=== PATIENT | female | born 1985 | race Caucasian/White ===

== ENCOUNTER 2017-10-29 21:43 | Inpatient (IN) | payer OTHER ==
[~2017-10-29] VITALS: Ht 185.4 cm; Wt 86.6 kg
[2017-10-29 21:50] VITALS: BP 135/83
--- NOTE | 2017-10-29 21:54 | NUR ---
AMB TO BED 7 BY ANA KEY
--- NOTE | 2017-10-29 21:55 | NUR ---
C/O LEFT FLANK PAIN X 2 HOURS PRIVATE INVESTIGATOR SURVEILLANCE. REPORTS NAUSEA AND FOUL-ODORED URINE, DENIES HEMATURIA/DYSURIA, V/D, FEVER/CHILLS PMH: RT KIDNEY STONES PT DENIES V/D, ADMITS NAUSEA; SKIN IS INTACT, PINK/WARM/DRY; AAOX4, PERRL, WITH EVEN AND STEADY GAIT; LUNGS CLEAR BL, BREATHING UNLABORED; HR EVEN AND REGULAR, BL PERIPHERAL PULSES PRESENT; BS ACTIVE X4, TENDERNESS TO LLQ ON PALPATION, NO HEPATOSPLENOMEGALLY PALPATED, RESONANT TO PERCUSSION; PT DENIES ANY FEVER, CP, SOB, OR COUGH AT THIS TIME; PT STATES 7/10 PAIN AT THIS TIME; VSS; PATIENT POSITIONED FOR COMFORT; HOB ELEVATED; BEDRAILS UP X2; BED DOWN.
[2017-10-29] MEDS ORDERED: NACL 0.9% 1,000 ML IV ONE (22:05)
[2017-10-29] MEDS ORDERED: KETOROLAC 30 MG/ML VIAL IVP ONE (22:05)
--- NOTE | 2017-10-29 22:32 | NUR ---
PT TO CT
[2017-10-29 22:55] LABS: BASOPHILS # (AUTO) 0.1 K/uL (0.00-0.22); BASOPHILS % (AUTO) 0.7 % (0.0-2.0); EOSINOPHILS # (AUTO) 0.1 K/uL (0-0.4); EOSINOPHILS % (AUTO) 0.5 % (0.0-4.0); HEMATOCRIT 43.2 % (36-48); HEMOGLOBIN 14.7 g/dL (12.0-16.0); LYMPHOCYTES # (AUTO) 1.6 K/uL (2.5-16.5); LYMPHOCYTES % (AUTO) 12.5 % (20.5-51.1); MEAN CORPUSCULAR HEMOGLOBIN 31 pg (27-31); MEAN CORPUSCULAR HGB CONC 34 g/dL (33-37); MEAN CORPUSCULAR VOLUME 89.3 fL (80-94); MONOCYTES # (AUTO) 0.4 K/uL (0.8-1.0); MONOCYTES % (AUTO) 3.3 % (1.7-9.3); NEUTROPHILS # (AUTO) 10.4 K/uL (1.8-7.7); PLATELET COUNT (AUTO) 189 K/uL (140-450); RED BLOOD CELL COUNT(AUTO) 4.84 MIL/uL (4.20-5.40); RED CELL DISTRIBUTION WIDTH 12.9 % (11.6-13.7); WHITE BLOOD COUNT (AUTO) 12.6 K/uL (4.8-10.8)
[2017-10-29 22:58] LABS: BILIRUBIN,URINE NEGATIVE (NEGATIVE); BLOOD, URINE 3+ (NEGATIVE); COLOR,URINE YELLOW (YELLOW); LEUKOCYTE ESTERASE ,URINE TRACE (NEGATIVE); NITRITE, URINE NEGATIVE (NEGATIVE); PH,URINE 6.5 (5.0-9.0); UGLUCOSE NEGATIVE (NEGATIVE)
[2017-10-29 23:00] LABS: APPEARANCE,URINE HAZY (CLEAR)
[2017-10-29 23:04] LABS: ANION GAP 11.1 (8-16); CREATININE 1.1 mg/dL (0.6-1.3); POTASSIUM 4.1 mmol/L (3.5-5.1)
[2017-10-29 23:08] LABS: RBC,URINE >100 /HPF (0-5); WBC,URINE 0-5 (RARE) /HPF (0-5)
[2017-10-29 23:10] LABS: ALBUMIN 3.9 g/dL (3.4-5.0); TOTAL BILIRUBIN 0.6 mg/dL (0.0-1.0)
[2017-10-29] MEDS ORDERED: cefTRIAXone 1,000 MG VIAL ONE (23:34)
[2017-10-30] MEDS ORDERED: MORPHINE SULFATE 4 MG/ML SYR IVP ONE
[2017-10-30] MEDS: NACL 0.9% 1,000 ML IV SCH ×3 (00:10→20:55)
[2017-10-30] MEDS ORDERED: MORPHINE SULFATE 2 MG/ML SYR IVP PRN (00:10)
[2017-10-30 00:40] VITALS: BP 115/78
--- NOTE | 2017-10-30 00:40 | NUR ---
REPORT RECEIVED FROM ED NURSE. PT IN STABLE CONDITION. PT ADMITTED TO MS MONITORING. HEART SOUNDS NORMAL. LUNG SOUNDS CLEAR BILATERALLY. BOWEL SOUNDS ACTIVE X4 QUADRANTS. IV SITE LEAKING. SKIN WARM, DRY, AND INTACT WITH NO OPEN WOUNDS. PT PAIN LEVEL 6/10, PAIN MEDICATION JUST GIVEN IN ER. BED LOCKED IN LOW POSITION. CALL ACE WITHIN REACH. ORIENTED TO THE FLOOR. WILL CONTINUE TO MONITOR.
--- NOTE | 2017-10-30 00:40 | NUR ---
Patient will be admitted to care of DR. SPRAGUE. Admited to MS. Will go to room 105A. Belongings list completed. Report to ALY KEY.
--- NOTE | 2017-10-30 01:50 | NUR ---
CAROL KEY CHANGED THE IV HUB STOPPING THE LEAKAGE. NO NEED TO REINSERT AN IV. WILL MONITOR FOR ANY COMPLICATIONS.
[2017-10-30] MEDS: MORPHINE SULFATE 4 MG/ML SYR IVP PRN ×3 (02:09→11:01)
--- NOTE | 2017-10-30 02:09 | NUR ---
PT IN SEVERE PAIN 12/16. PT MEDICATED. PT TOLERATED WELL. WILL CONTINUE TO MONITOR.
--- NOTE | 2017-10-30 03:20 | NUR ---
PT FEELING NAUSEOUS. WILL CONTACT [facility] FOR ORDER FOR ZOFRAN.
--- NOTE | 2017-10-30 03:25 | NUR ---
ORDER IN FROM EDIL[facility] NIX. PATRICE CANTU Q6 PRN.
--- NOTE | 2017-10-30 03:48 | NUR ---
ZOFRAN GIVEN. PT TOLERATED WELL.
[2017-10-30] MEDS: ONDANSETRON 4 MG/2 ML VIAL IVP PRN ×2 (03:50→11:00)
--- NOTE | 2017-10-30 04:45 | NUR ---
PT ASLEEP LEFT LATERAL COMFORTABLY. PT NOT IN ANY ACUTE DISTRESS. WILL CONTINUE TO MONITOR.
--- NOTE | 2017-10-30 07:10 | NUR ---
REPORT GIVEN TO AM NURSE. PT IN STABLE CONDITION.
--- NOTE | 2017-10-30 07:15 | NUR ---
RECEIVED PT FROM MORPHOLOGIST NURSE, ALY, PT IS AWAKE AND DRINKING WATER IN HER CUP. PT IS ALERT, ORIENTEDX4. PLAN OF CARE WAS DISCUSSED AND PT VERBALIZED UNDERSTANDING. PT HAS AN IV LINE ON THE LEFT ACG. 18 WITH NS RUNNING AT A 100ML/HR, INTACT. SIDE RAILS ARE UP AND CALL LIGHT WITHIN REACH. NO SIGNS OF DISTRESS NOTED AND WILL CONTINUE TO MONITOR.
[2017-10-30 08:00] VITALS: BP 114/77
--- NOTE | 2017-10-30 14:05 | NUR ---
DR. SPRAGUE WAS INFORMED OF THE PT'S PAIN RATE OF 8/[address] SPRAGUE ORDERED TORADOL 30MG IV Q6H FOR MODERATE PAIN. ACKNOWLEDGED AND WILL PROCESS THE ORDER.
--- NOTE | 2017-10-30 14:10 | NUR ---
PT WAS SEEN AND ASSESSES BY DR. SPRAGUE. PT VERBALIZED STILL HAVING PAIN ON HER LEFT FLANK AREA.
--- NOTE | 2017-10-30 14:48 | NUR ---
ACKNOWLEDGED A DISCHARGE ORDER FOR THE PT FROM DR. SPRAGUE TO RETURN TO [facility]. WILL FACILITATE DISCHARGE PROCESS. Addendum: 10/30/17 at 1452 by Laureen Ellis RN WRONG PT ENTRY FOR THE ABOVE INFORMATION.
[2017-10-30 16:00] VITALS: BP 114/78
[2017-10-30] MEDS: KETOROLAC 30 MG/ML VIAL IVP PRN ×2 (16:54→22:29)
--- NOTE | 2017-10-30 16:55 | NUR ---
PTM IS AWAKE AND VERBALIZED A PAIN RATE OF 6/10, VITAL SIGNS TAKEN AND MEDICATION GIVEN AND PT TOLERATED IT. NO SIGN OF DISTRESS NOTED. WILL ASSESSED PT'S PAIN IN AN HOUR.
--- NOTE | 2017-10-30 19:10 | NUR ---
ENDORSED PT TO TAPPER BALANCE WHEEL SCREW HOLE NURSE, ALY, PT IS AWAKE WITH ON THE BEDSIDE. PT IS STABLE AT THIS TIME.
--- NOTE | 2017-10-30 19:11 | NUR ---
REPORT RECEIVED FROM AM NURSE. PT IN STABLE CONDITION. AAOX4. HEART SOUNDS CLEAR. LUNG SOUNDS CLEAR. BOWEL SOUNDS ACTIVE X4 QUADRANTS. INTRODUCED SELF AND BOARD UPDATED. IV SITE 18G LEFT AC PATENT AND INTACT. SKIN WARM, DRY, AND INTACT WITH NO OPEN WOUNDS. BED LOCKED IN LOW POSITION. CALL ACE WITHIN REACH. WILL CONTINUE TO MONITOR.
--- NOTE | 2017-10-30 20:10 | NUR ---
PM MEDS GIVEN. PT TOLERATED WELL.
--- NOTE | 2017-10-30 22:29 | NUR ---
TORADOL GIVEN FOR PAIN LEVEL 12/16. PT TOLERATED WELL. WILL REASSESS AT 2328.
--- NOTE | 2017-10-30 23:29 | NUR ---
PAIN REASSESSMENT COMPLETE. PT PAIN 06/18. INTERVENTION SUCCESSFUL.
[2017-10-31] VITALS: BP 88/47
--- NOTE | 2017-10-31 01:30 | NUR ---
PT SLEEPING COMFORTABLY IN BED IN NO ACUTE DISTRESS. WILL CONTINUE TO MONITOR.
--- NOTE | 2017-10-31 03:30 | NUR ---
PT SLEEPING LEFT LATERAL. CHEST EXPANSION VISIBLE. PT NOT IN ANY ACUTE DISTRESS.
--- NOTE | 2017-10-31 04:30 | NUR ---
PT PAIN LEVEL 7/10. TORADOL GIVEN. PT TOLERATED WELL.
[2017-10-31] MEDS: KETOROLAC 30 MG/ML VIAL IVP PRN ×3 (04:37→18:15)
[2017-10-31 06:55] LABS: BASOPHILS % (AUTO) 0.3 % (0.0-2.0); EOSINOPHILS # (AUTO) 0.1 K/uL (0-0.4); HEMATOCRIT 37.1 % (36-48); HEMOGLOBIN 12.6 g/dL (12.0-16.0); LYMPHOCYTES # (AUTO) 1.2 K/uL (2.5-16.5); LYMPHOCYTES % (AUTO) 10.4 % (20.5-51.1); MEAN CORPUSCULAR HEMOGLOBIN 31 pg (27-31); MEAN CORPUSCULAR HGB CONC 34 g/dL (33-37); MEAN CORPUSCULAR VOLUME 89.8 fL (80-94); MONOCYTES # (AUTO) 0.8 K/uL (0.8-1.0); MONOCYTES % (AUTO) 6.8 % (1.7-9.3); NEUTROPHILS # (AUTO) 9.4 K/uL (1.8-7.7); NEUTROPHILS % (AUTO) 81.5 % (42.2-75.2); PLATELET COUNT (AUTO) 129 K/uL (140-450); RED BLOOD CELL COUNT(AUTO) 4.12 MIL/uL (4.20-5.40); WHITE BLOOD COUNT (AUTO) 11.6 K/uL (4.8-10.8)
--- NOTE | 2017-10-31 07:05 | NUR ---
REPORT GIVEN TO AM NURSE. PT IN STABLE CONDITION.
--- NOTE | 2017-10-31 07:06 | NUR ---
RECEIVED BEDSIDE REPORT FROM SOFTWARE COMPUTER SPECIALIST NURSE. PATIENT IS SLEEPING. NO SIGNS OF DISTRESS ON ROOM AIR. IV ON L AC 18G INFUSING NS AT 100. IV IS CLEAN, DRY AND INTACT. SKIN IS INTACT. PATIENT IS AMBULATORY. BED IN LOW POSITION. CALL LIGHT WITHIN REACH. WILL CONTINUE TO MONITOR THE PATIENT.
--- NOTE | 2017-10-31 07:06 | NUR ---
RECEIVED BEDSIDE REPORT FROM RUSSIAN RUBBER NURSE. PATIENT IS SLEEPING. NO SIGNS OF DISTRESS ON ROOM AIR. PATIENT SLEEPING ON TUMMY. IV ON R AC 20G INFUSING NS AT 100. IV IS CLEAN, DRY AND INTACT. PATIENT IS 8 WEEKS 5 DAYS . BED IN LOW POSITION. CALL LIGHT WITHIN REACH. WILL CONTINUE TO MONITOR PATIENT. PATIENT IS ON OBSERVATION. Addendum: 10/31/17 at 1022 by Laurie Young RN WRONG PATIENT.
[2017-10-31 07:56] LABS: ALBUMIN 2.7 g/dL (3.4-5.0); ANION GAP -3.2 (8-16); CARBON DIOXIDE 24.8 mmol/L (21-32); CREATININE 0.9 mg/dL (0.6-1.3); POTASSIUM 3.6 mmol/L (3.5-5.1)
[2017-10-31 08:00] VITALS: BP_SYST 134; BP_SYST 97; BP_DIAS 59; BP_DIAS 88
--- NOTE | 2017-10-31 08:07 | NUR ---
LAB CALLED FOR CRITICAL CALCIUM 7.6, SODIUM 124. CALLED DR SPRAGUE. HE IS AWARE. HE SAID SHE IS OK D/T IVF.
[2017-10-31] MEDS: NACL 0.9% 1,000 ML IV SCH ×2 (10:00→16:10)
--- NOTE | 2017-10-31 10:00 | NUR ---
ADMINISTERED IV FLUIDS. IV SITE IS CLEAN, DRY AND INTACT. WILL CONTINUE TO MONITOR THE PATIENT. BED IN LOW POSITION. CALL LIGHT WITHIN REACH.
--- NOTE | 2017-10-31 11:16 | NUR ---
PATIENT IN BED. NO SIGNS OF DISTRESS. PATIENT IS EATING SNACKS. WILL CONTINUE TO MONITOR THE PATIENT.
--- NOTE | 2017-10-31 13:00 | NUR ---
PATIENT AMBULATING AROUND THE HALLS WITH . GAIT IS STEADY, NO SIGNS OF DISTRESS
--- NOTE | 2017-10-31 14:44 | NUR ---
PATIENT IN ROOM WITH FAMILY. NO DISTRESS AT THIS TIME. WILL CONTINUE TO MONITOR THE PATIENT
[2017-10-31 16:00] VITALS: BP 105/75
--- NOTE | 2017-10-31 17:00 | NUR ---
PATIENT WITH AT BEDSIDE. NO COMPLAINTS AT THIS TIME. BED IN LOW POSITION. CALL LIGHT WITHIN REACH
--- NOTE | 2017-10-31 17:27 | NUR ---
FAXED INITIAL REVIEW TO [facility] [phone] PHONE IVETTE [phone]
--- NOTE | 2017-10-31 19:00 | NUR ---
REPORT RECEIVED AT BEDSIDE FOR TRANSFER OF CARE. PT SITTING UP IN LOW BED WITH SIDE RAILS UP X 2 AND IS ALERT AND ORIENTED X 4, SKIN IN TACT AND HAS A 18 GAUGE IN L EFT AC. RUNNING N/S AT 100ML/HR. NO S/S OF PAIN OR DISTRESS AT THIS TIME. . V/S T 99.1 P 73 R 18 B/P 124/76 02 100% ON R/A. PT OFFERED TYLENOL FOR MILD PAIN BUT PT REFUSED AT THIS TIME.
--- NOTE | 2017-10-31 19:00 | NUR ---
GAVE BEDSIDE REPORT TO ASSISTANT PROFESSOR SURGICAL TECHNOLOGY NURSE. PATIENT IS IN STABLE CONDITION
[2017-10-31 20:00] VITALS: BP 106/63
--- NOTE | 2017-10-31 21:00 | NUR ---
PT IN BED FOOD BROUGHT IN BY FAMILY, PT IS MADE AWARE OF NPO STATUS AND HAS VERBALIZED UNDERSTANDING.
--- NOTE | 2017-10-31 23:50 | NUR ---
PT IS ASLEEP IN BED NO S/S OF PAIN OR DISTRESS NOTED, PT IS AWARE OF NPO STATUS. CALL ACE IN REACH.
[2017-11-01] MEDS: NACL 0.9% 1,000 ML IV SCH ×2 (01:33→12:10)
[2017-11-01] MEDS: KETOROLAC 30 MG/ML VIAL IVP PRN (01:37)
--- NOTE | 2017-11-01 01:45 | NUR ---
PT C/O 6/10 PAIN IN L FLANK AREA, GIVEN 30MG TORADOL IVP. PT IN LOW BED, SIDE RAILS UP X 2 IV SITE PATENT AND RUNNING AT 100MLS/NS ORDERED. CALL ACE IN REACH
[2017-11-01] MEDS ORDERED: BIRTHCONTROL (06:54)
[2017-11-01 07:03] LABS: BASOPHILS % (AUTO) 0.2 % (0.0-2.0); EOSINOPHILS # (AUTO) 0.2 K/uL (0-0.4); EOSINOPHILS % (AUTO) 2.1 % (0.0-4.0); HEMATOCRIT 34.9 % (36-48); HEMOGLOBIN 11.8 g/dL (12.0-16.0); LYMPHOCYTES # (AUTO) 1.6 K/uL (2.5-16.5); LYMPHOCYTES % (AUTO) 18.6 % (20.5-51.1); MEAN CORPUSCULAR HEMOGLOBIN 31 pg (27-31); MEAN CORPUSCULAR HGB CONC 34 g/dL (33-37); MEAN CORPUSCULAR VOLUME 90.6 fL (80-94); MONOCYTES # (AUTO) 0.7 K/uL (0.8-1.0); MONOCYTES % (AUTO) 7.5 % (1.7-9.3); NEUTROPHILS # (AUTO) 6.3 K/uL (1.8-7.7); NEUTROPHILS % (AUTO) 71.6 % (42.2-75.2); PLATELET COUNT (AUTO) 131 K/uL (140-450); RED BLOOD CELL COUNT(AUTO) 3.85 MIL/uL (4.20-5.40); RED CELL DISTRIBUTION WIDTH 13.1 % (11.6-13.7); WHITE BLOOD COUNT (AUTO) 8.8 K/uL (4.8-10.8)
--- NOTE | 2017-11-01 07:10 | NUR ---
TRANSFER OF CARE AT BEDSIDE TO [facility] KEY PT IN STABLE CONDITION TO BE GOING TO SURGERY FOR A STENT TO BE PLACED DUE TO POLYNEPHRITIS. PT REMAINS NPO.
--- NOTE | 2017-11-01 07:10 | NUR ---
RECEIVED REPORT FROM NIGHTSHIFT NURSE AT BEDSIDE. PATIENT IS ASLEEP AT THIS TIME. PATIENT IS AROUSABLE TO NAME. NO DISTRESS NOTED AT THIS TIME. IV NOTED ON LEFT AC 18 G WITH 100 ML/HR NORMAL SALINE RUNNING. NO PAIN NOTED AT THIS TIME. UPDATED BOARD IN PATIENT'S ROOM. LOWERED BED TO LOWEST SETTING. WILL CONTINUE TO MONITOR PATIENT.
[2017-11-01 07:13] LABS: ANION GAP 12.3 (8-16); CARBON DIOXIDE 23.5 mmol/L (21-32); CREATININE 0.8 mg/dL (0.6-1.3); POTASSIUM 3.8 mmol/L (3.5-5.1)
[2017-11-01 08:00] VITALS: BP 110/67
--- NOTE | 2017-11-01 08:24 | NUR ---
PATIENT TOOK AM MEDICATIONS. PATIENT TOLERATED WELL. WILL CONTINUE TO MONITOR PATIENT
[2017-11-01] MEDS ORDERED: TAMSULOSIN 0.4 MG CAP PO SCH (08:30)
--- NOTE | 2017-11-01 09:50 | NUR ---
PATIENT ASLEEP AT THIS TIME. NO DISTRESS NOTED. WILL CONTINUE TO MONITOR PATIENT.
[2017-11-01] MEDS: MORPHINE SULFATE 4 MG/ML SYR IVP PRN (11:05)
[2017-11-01] MEDS ORDERED: CEPH250C16 PO (11:31)
[2017-11-01] MEDS ORDERED: TAMS0.4C96 PO (11:31)
[2017-11-01] MEDS ORDERED: ACET-8386 PO (11:32)
[2017-11-01] MEDS ORDERED: SEVOFLURANE 250 ML BTL INH ONE (12:55)
[2017-11-01] MEDS ORDERED: PROPOFOL 200 MG/20 ML VIAL IV ONE (12:55)
[2017-11-01] MEDS ORDERED: MIDAZOLAM 2 MG/2 ML VIAL ONE (13:02)
[2017-11-01] MEDS ORDERED: fentaNYL 0.05 MG/ML VIAL ONE (13:02)
[2017-11-01] MEDS ORDERED: LACTATED RINGERS 1,000 ML IV SCH (13:29)
[2017-11-01] MEDS ORDERED: diphenhydrAMINE 50 MG/ML VIAL IVP PRN (13:30)
[2017-11-01] MEDS ORDERED: MEPERIDINE 25 MG/ML SYR IVP PRN (13:30)
[2017-11-01] MEDS ORDERED: ONDANSETRON 4 MG/2 ML VIAL IVP PRN (13:30)
--- NOTE | 2017-11-01 14:05 | NUR ---
PATIENT ARRIVED BACK FROM SURGERY. PATIENT VITAL SIGNS ARE WITHIN NORMAL LIMITS. PATIENT DOES NOT COMPLAIN OF PAIN. PATIENT DOES NOT PRESENT WITH FEVER. WILL CONTINUE TO MONITOR PATIENT.
--- NOTE | 2017-11-01 15:34 | NUR ---
FAXED CONCURRENT REVIEW TO [facility] [phone] PHONE IVETTE [phone].
[2017-11-01 16:00] VITALS: BP 109/75
--- NOTE | 2017-11-01 16:22 | NUR ---
PATIENT RESTING AT THIS TIME. FAMILY MEMBER AT BEDSIDE. WILL CONTINUE TO MONITOR PATIENT.
--- NOTE | 2017-11-01 16:50 | NUR ---
PATIENT ABLE TO URINATE AT THIS TIME. WILL CONTINUE TO MONITOR PATIENT.
--- NOTE | 2017-11-01 17:30 | NUR ---
PATIENT ABLE TO EAT HER DINNER. WILL CONTINUE TO MONITOR PATIENT.
--- NOTE | 2017-11-01 18:30 | NUR ---
PATIENT SIGNED ALL DISCHARGE INSTRUCTIONS. PATIENT IS AWARE OF PRESCRIPTIONS. REMOVED PATIENT'S IV LINE WITH CATHETER STILL INTACT. REMOVED PATIENTS ID BAND. PATIENT GATHERED ALL BELONGINGS AND AMBULATED OFF THE UNIT WITH FAMILY MEMBER.
== END 2017-11-01 18:30 | disposition home or self-care (01) | DRG 465 ==
LOC: MED 21:43 → MTU 10-30 00:19
PROVIDERS: ADMIT Hospitalist; ATTEND Hospitalist
PROC: 0T778DZ Dilation of Left Ureter with Intraluminal Device, Via Natural or Artificial Opening Endoscopic (ICD-10-PCS; 2017-11-01)
PROC: BT1F1ZZ Fluoroscopy of Left Kidney, Ureter and Bladder using Low Osmolar Contrast (ICD-10-PCS; principal; 2017-11-01 13:00)
DX: N13.2 Hydronephrosis with renal and ureteral calculous obstruction (principal); E87.1 Hypo-osmolality and hyponatremia; F17.210 Nicotine dependence, cigarettes, uncomplicated; N12 Tubulo-interstitial nephritis, not specified as acute or chronic; Z90.49 Acquired absence of other specified parts of digestive tract; Z98.51 Tubal ligation status
CPT/HCPCS: 36415; 80048; 80053; 81001; 81025; 83690; 85025; 87081; 87086; 87186; 96361; 96365; 96375; 99285; J0696; J1885; J2250; J2270; J2405; J2704; J3010; J7030; J7060